=== PATIENT | male | born 1960 | race Caucasian/White ===

== ENCOUNTER 2016-12-06 20:39 | Emergency (ER) | payer OTHER ==
[~2016-12-06] VITALS: Ht 177.8 cm; Wt 108.4 kg
--- NOTE | ~2016-12-06 | CT2 ---
[facility] A Service of [facility] RADIOLOGY TEXT RESULTS PATIENT: CHRISTIANNE PATEL LOCATION: [facility] : 58 UNIT #: [id number] AGE: [address]: Jarret Lane DO SEX: M ORDER DR: [id number] [facility] [address] [place], [place] [address] [id number] MR#: [id number] Acc #: [id number] NAME: CHRISTIANNE PATEL : 1960 SEX: M STUDY DATE/TIME: 12/06/2016 23:49 UNIT: [facility] ROOM: STUDY DESCRIPTION: CT Abd and Pelv W Cont Attending Physician: Jarret Lane D.O. Ordering Physician: Jarret Lane D.O. Primary Care Physician: Judson Barrios M.D. MEDICAL IMAGING REPORT This report is preliminary unless electronic signature is present EXAM CT abdomen and pelvis with contrast. INDICATIONS Left-sided flank pain today. PROCEDURE Contrast-enhanced CT of the abdomen and pelvis. This CT exam was performed with one or more of the following radiation dose reduction techniques: Automatic exposure control, adjustment of mA and/or kV according to patient size, and iterative reconstruction. COMPARISON 11/02/2010. FINDINGS Abdomen with contrast: Included lung bases are clear. Liver, spleen, adrenal glands, pancreas, gallbladder unremarkable. The bowel loops are nondilated. There is a 2.2 cm ovoid fat attenuation structure with surrounding mild inflammation along the anteromedial aspect of the proximal sigmoid colon. Appendix is normal. Mild nonspecific haziness in the central mesentery is similar. Pelvis with contrast: No pelvic mass or fluid. No aggressive appearing bone lesion. IMPRESSION Acute epiploic appendagitis in the left lower quadrant of the abdomen. No other acute findings. Dictated by... Chase Conteh M.D. [facility] A Service of [facility] RADIOLOGY TEXT RESULTS PATIENT: CHRISTIANNE PATEL LOCATION: [facility] : 58 UNIT #: [id number] AGE: [address]: Jarret Lane DO SEX: M ORDER DR: THIS IS AN ELECTRONICALLY VERIFIED REPORT Chase Conteh M.D. at 12/07/2016 9:51 PM EED/bd TD: 12/07/2016 13:30 JOB #: [id number] MEDICAL IMAGING REPORT Page 1 of 1 COPY
[~2016-12-06 20:39] MED LIST: LISINOPRIL-HCTZ1 T16 PO
[2016-12-06 22:10] LABS: URINE SOURCE CLEAN CATCH
[2016-12-06 22:13] LABS: BASOPHIL% 0.6 % (0-2.5); EOSINOPHIL# 0.2 X10e3 (0-0.7); EOSINOPHIL% 2.9 % (0.0-7.0); HEMATOCRIT 42.8 % (38.0-50.0); HEMOGLOBIN 14.2 gm/dL (13.0-16.0); LYMPHOCYTE# 2.3 X10e3 (1.0-3.5); LYMPHOCYTE% 38.3 % (17.0-45.0); MEAN CELL VOLUME 88.8 FL (83-96); MEAN CORPUSCULAR HEMOGLOBIN 29.6 PG (28-34); MEAN CORPUSCULAR HGB CONC 33.3 g/dL (30-36); MEAN PLATELET VOLUME 8.8 FL (6.5-11.5); MONOCYTE# 0.9 X10e3 (0-1.0); MONOCYTE% 15.1 % (3.0-12.0); NEUTROPHIL# 2.5 X10e3 (1.5-7.1); NEUTROPHIL% 43.1 % (40-75); PLATELET COUNT 193 X10e3 (140-420); RED BLOOD COUNT 4.82 X10e (3.90-5.60); WHITE BLOOD COUNT 5.9 X10e3 (4.0-10.5)
[2016-12-06 22:14] LABS: URINE APPEARANCE CLEAR; URINE BILIRUBIN NEG (NEG); URINE BLOOD NEG (NEG); URINE COLOR YELLOW; URINE GLUCOSE NEG (NEG); URINE KETONE NEG (NEG); URINE LEUKOCYTE ESTERASE NEG (NEG); URINE NITRATE NEG (NEG); URINE PROTEIN NEG (NEG); URINE SPECIFIC GRAVITY 1.028 (1.003-1.035); URINE UROBILINOGEN 0.2 MG/DL (NEG)
[2016-12-06 22:19] LABS: CULTURE INDICATED? NO
[2016-12-06 22:21] LABS: DIFF IND NO
[2016-12-06 22:45] LABS: ALBUMIN SERUM 4.4 g/dL (3.5-5.0); ALKALINE PHOSPHATASE 81 U/L (32-92); ALT (SGPT) 54 U/L (10-40); AST (SGOT) 44 U/L (10-42); BILIRUBIN,TOTAL 0.7 mg/dL (0.2-2.0); BLOOD UREA NITROGEN 18 mg/dL (9-23); BUN/CREATININE RATIO 16.36; CALCIUM SERUM 9.2 mg/dL (8.4-10.2); CARBON DIOXIDE 30 mmol/L (22-31); CHLORIDE 103 mmol/L (100-111); CREATININE SERUM 1.1 mg/dL (0.6-1.4); GLOM FILT RATE Estimated 74.1 mL/min (>60); GLUCOSE FASTING 94 mg/dL (70-110); LIPASE 26 U/L (22-51); POTASSIUM 3.8 mmol/L (3.5-5.1); PROTEIN TOTAL SERUM 7.5 g/dL (6.0-8.3); SODIUM 137 mmol/L (135-145)
[2016-12-06 22:46] LABS: BILIRUBIN, DIRECT <0.1 mg/dL (0.0-0.2); BILIRUBIN,INDIRECT 0.6 mg/dL (0.0-0.9)
== END 2016-12-07 01:04 | disposition home or self-care (01) ==
LOC: CED 20:39
PROVIDERS: Emergency Medicine
DX: K63.89 Other specified diseases of intestine (principal); I10 Essential (primary) hypertension
CPT/HCPCS: 36415; 74177; 80048; 80076; 81003; 83690; 85025; 96361; 96374; 99284; J1885; Q9967